=== PATIENT | female | born 1990 | race Caucasian/White ===

== ENCOUNTER 2021-09-11 10:23 | Emergency (ER) | payer SELFPAY ==
--- NOTE | ~2021-09-11 | XR_ITS ---
EXAMINATION: XR foot RT min 3V DATE: 09/11/2021 11:09 INDICATION: Right foot pain TECHNIQUE: Dorsoplantar, lateral, and 2 oblique views of the right foot were obtained. COMPARISON: None. FINDINGS: There is subtle heterotopic ossification near the medial base of the second metatarsal. The joint spaces are normal. Bone alignment is normal. There is mild dorsal soft tissue swelling of the foot. IMPRESSION: 1. Heterotopic ossification near the medial base of the second metatarsal could reflect acute or heal ing fracture. Reviewed, dictated and finalized at location B. IMPRESSION: 1. Heterotopic ossification near the medial base of the second metatarsal could reflect acute or healing fracture.
[2021-09-11 10:55] VITALS: BP 111/68; PULSE 85; RESP 18; TEMP 37; O2SAT 100
--- NOTE | 2021-09-11 10:57 | ED.LOWEXIN ---
HPI - Extremity Injury (Lower) General Chief Complaint: Extremity Injury, Lower Stated Complaint: rt foot and ankle swollen Time Seen by Provider: 09/11/21 10:58 Source: patient, RN notes reviewed and old records reviewed Mode of arrival: ambulatory Limitations: no limitations History of Present Illness HPI Narrative: 30-year-old female presents to the [facility] with complaints of right foot pain. Patient states that she was playing softball approximately a month and a half ago when she rolled her ankle, at that time had an x-ray of her ankle done at another facility states it was normal. Continues to have pain to the dorsal and medial aspect of her right foot. No ankle pain. Walks with a normal gait. Related Data Home Medications Medication Instructions Recorded Confirmed No Home Medications 09/11/21 09/11/21 Allergies Allergy/AdvReac Type Severity Reaction Status Date / Time epinephrine Allergy Mild Hives Verified 09/11/21 11:34 Sulfa (Sulfonamide Allergy Mild Hives Verified 09/11/21 11:34 Antibiotics) sulfamethoxazole Allergy Mild Hives / Verified 09/11/21 11:34 Red Face trimethoprim Allergy Mild Hives / Verified 09/11/21 11:34 Red Face Review of Systems Review of Systems: All systems reviewed & are unremarkable except as noted in HPI and below Constitutional: Constitutional: Reports no additional constitutional complaints, Denies chills and Denies fever(s) Eyes: Eyes: Reports no additional eye complaints ENT: Reports system reviewed and no additional complaints, except as documented Cardiovascular: Cardiovascular: Reports no additional cardiovascular complaints, Denies chest pain and Denies radiating jaw, neck or arm pain Respiratory: Respiratory: Reports no additional respiratory complaints, Denies cough and Denies dyspnea Gastrointestinal: Gastrointestinal: Reports no additional gastrointestinal complaints, Denies abdominal pain, Denies nausea and Denies vomiting Musculoskeletal: Musculoskeletal: Reports as per HPI Comments: right medial and dorsal foot pain Integumentary/Breasts: Skin/Breast: Reports system reviewed and no additional complaints, except as docu and Denies rash Neurologic: Reports system reviewed and no additional complaints, except as documented Psychiatric: Psychiatric: Reports no additional psychiatric complaints Allergic/Immunologic: Allergic/Immunologic: Reports no additional allergic/immunologic complaints [facility] Past Medical History 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 There is no relevant family history pertinent to the patient complaint. Exam Const: General: healthy appearing, no acute distress and alert Nutritional Appearance: well nourished Orientation/consciousness: patient oriented x3 Limitations: no limitations HENMT: Head: normal to inspection Eyes: Pupils: Equal, round and reactive pupils present Neck: Neck: normal visual inspection, no lymphadenopathy and no meningeal signs Chest: Chest palpation & inspection: normal inspection of the chest Resp: Effort & Inspection: normal respiratory effort and no use of accessory muscles Auscultation: clear to auscultation bilaterally, no crackles, no rales, no rhonchi and no wheezes Cardio: Rate: regular rate Rhythm: regular rhythm Back/Spine/Pelvis: Back: no CVA tenderness Skin: General skin exam: normal color Rashes: no rashes Wounds: no wounds Neuro: General: patient oriented x3, moves all extremities, no meningeal signs and no focal motor deficits Speech: normal speech Extrem
== END 2021-09-11 11:47 | disposition home or self-care (01) ==
PROVIDERS: Emergency Provider Nurse Practitioner; PCP Internal Medicine
DX: S92.324A Nondisplaced fracture of second metatarsal bone, right foot, initial encounter for closed fracture (principal); X50.9XXA Other and unspecified overexertion or strenuous movements or postures, initial encounter; Y93.64 Activity, baseball; Q79.60 Ehlers-Danlos syndrome, unspecified
CPT/HCPCS: 73630; 99214; G0463